=== PATIENT | female | born 1990 | race Two or more races ===

== ENCOUNTER 2019-03-06 04:05 | Inpatient (IN) | payer MEDICAID ==
[~2019-03-06] VITALS: Ht 160 cm; Wt 74.8 kg
[2019-03-06] MEDS ORDERED: IV RINGERS,LACTATED 1000ML 1,000 ML IV SCH (04:30)
[2019-03-06 04:34] LABS: BILIRUBIN,URINE NEGATIVE (NEG); CLARITY,URINE CLEAR; COLOR,URINE YELLOW; NITRITE,URINE NEGATIVE (NEG); PROTEIN,URINE NEGATIVE (NEG-TRACE); UROBILINOGEN,URINE 0.2 mg/dL (0.2 mg/dL)
[2019-03-06 04:45] LABS: BARBITURATES NEG (NEG); BENZODIAZEPINES NEG (NEG); CANNABINOIDS NEG (NEG); COCAINE NEG (NEG); METHADONE NEG (NEG); OPIATES NEG (NEG); PHENCYCLIDINE NEG (NEG)
[2019-03-06 04:46] LABS: AMPHETAMINE/METHAMPHETAMINE NEG (NEG)
[2019-03-06 05:14] LABS: AMNIO PT POSITIVE
[2019-03-06 05:20] LABS: BACTERIA,URINE 0 /HPF (0-FEW); RBC,URINE OCC /HPF (0-2); SQUAMOUS EPITHELIAL CELL,UR FEW /LPF
[2019-03-06] MEDS ORDERED: CITRIC ACID/SODIUM CITRATE 30 ML SOLUTION. PO PRN (05:30)
[2019-03-06] MEDS ORDERED: BUTORPHANOL 2 MG/ML VIAL. IV PRN ×2 (05:30)
[2019-03-06] MEDS ORDERED: OXYTOCIN 30 UNIT/500 ML PREMIX 500 ML IV PRN ×3 (05:30→13:15)
[2019-03-06] MEDS ORDERED: TERBUTALINE 1 MG/ML VIAL. SQ PRN (05:30)
[2019-03-06] MEDS ORDERED: 0.9 % SODIUM CHLORIDE 10 ML DISP.SYRIN. IV PRN ×2 (05:30→13:15)
[2019-03-06] MEDS ORDERED: MAG HYDROX/ALUMINUM HYD/SIMETH 30 ML ORAL.SUSP PO PRN ×2 (05:30→13:15)
[2019-03-06] MEDS ORDERED: ONDANSETRON PF 4 MG/2 ML VIAL. IV PRN (05:30)
[2019-03-06] MEDS ORDERED: fentaNYL PF VIAL 100 MCG/2 ML VIAL IV PRN (05:30)
[2019-03-06 05:34] VITALS: BP 120/76
[2019-03-06 06:08] LABS: HEMATOCRIT 34.3 % (36.0-47.0); HEMOGLOBIN 11.8 g/dL (12.0-15.5); RED BLOOD COUNT 3.86 x10^6/uL (3.50-5.40); RED CELL DISTRIBUTION WIDTH 14.2 % (11.5-14.5); WHITE BLOOD COUNT 12.4 x10^3/uL (4.0-11.0)
--- NOTE | 2019-03-06 07:50 | PDOC1 ---
OB - History Hx of Present Care: Good Care Ultrasounds: No ultrasounds Obstetrical Complications: Other (HSV on acyclovir no current out breaks or prodromal symptoms) Medical Complications: None Past Family/Social History * Past Medical, Surgical, Family and Obstetric Histories reviewed from chart. Blood Type: AB+ Rubella: Immune RPR/VDRL: Negative GBS Status: Negative HBsAG: Negative OB - Chief Complaint & HPI Date of Admission: Date of Admission: Mar 06, 2019 at 04:05 Chief Complaint/History : 1 Para: 0 EDC: March 26, 2019 Reason for admission: rupture of membranes, other (H/O HSV) Admission Nurse Assessment Rev: Yes OB - Admission Exam Physical Exam Vitals: VS - Last 72 Hours, by Label Date Time Temp Pulse Resp B/P (MAP) Pulse Ox O2 Delivery O2 Flow Rate FiO2 03/06/19 05:34 98.9 82 18 120/76 (91) Room Air 98.9 HEENT: Normal, Nasal Mucosa Normal, Oropharynx Normal, Moist Membranes, Fontanelles Normal Heart: Regular Rate Lungs: Clear, Equal Abdomen: Gravid Extremities: Normal Pulses, No tenderness or swelling Reflexes: Normal Cervical Dilatation: Fingertip Effacement: 50% Station: -2 Membranes: Ruptured Amniotic Fluid: Clear Heart Rate: Normal Accelerations: Accelerations Present Decelerations: No decelerations Short Term Variability: Present Contractions on Admission: < 5 Minutes Apart Intensity: Moderate Assessment/Plan Assessment/Plan TIUP HSV history on suppression SROM Continue suppressioAugmention ACS RL HINSON MD Mar 06, 2019 07:50
[2019-03-06] MEDS ORDERED: ACYCLOVIR 200 MG CAPSULE. PO ONE (08:15)
[2019-03-06] MEDS: IV RINGERS,LACTATED 1000ML 1,000 ML IV SCH ×3 (10:59→21:29)
[2019-03-06] MEDS: LIDOCAINE 1% PF 30 ML VIAL. INJ PRN (12:38)
--- NOTE | 2019-03-06 13:04 | PDOC ---
VAGINAL DELIVERY DATE DATE: 03/06/19 TIME: 13:02 : 1 EDC: March 26, 2019 VAGINAL DELIVERY: VTX PLACENTA: Spontaneous SEX: Male WEIGHT 6/12 Nuchal Cord: No Amniotic Fluid: Clear PAIN: Local EPISIOTOMY: Yes EXTENSION: No EBL 300cc COMPLICATIONS None CONDITION Stable Signs of Intrauterine Infectio: None Shoulder Dystocia: No DIAGNOSIS RL Briceno MD Mar 06, 2019 13:04
[2019-03-06] MEDS ORDERED: SIMETHICONE 80 MG TAB.CHEW PO PRN (13:15)
[2019-03-06] MEDS ORDERED: BENZOCAINE 20% TOPICAL AEROSOL SPRAY 57GM CAN. TP PRN (13:15)
[2019-03-06] MEDS ORDERED: MAGNESIUM HYDROXIDE 2,400 MG/30 ML ORAL.SUSP. PO PRN (13:15)
[2019-03-06] MEDS ORDERED: IBUPROFEN 400 MG TABLET. PO PRN (13:15)
[2019-03-06] MEDS ORDERED: diphenhydrAMINE HCL 25 MG CAPSULE PO PRN (13:15)
[2019-03-06] MEDS ORDERED: ZOLPIDEM 5 MG TABLET. PO PRN (13:15)
[2019-03-06] MEDS ORDERED: ACETAMINOPHEN 325 MG TABLET. PO PRN (13:15)
[2019-03-06] MEDS ORDERED: PHENYLEPH/MINERAL OIL/PETROLAT RECTAL OINTMENT 28GM TUBE. RC PRN (13:15)
[2019-03-06] MEDS ORDERED: HYDROCORTISONE 1% TOPICAL OINTMENT 30GM TUBE. TP PRN (13:15)
[2019-03-06] MEDS ORDERED: AMMONIA AROMATIC 15% INHALANT AMPUL. ONE (14:58)
[2019-03-06] MEDS: IBUPROFEN 400 MG TABLET. PO SCH ×2 (16:38→22:00)
[2019-03-06] MEDS: oxyCODONE/APAP 5/325 1 TAB TABLET PO PRN (16:58)
[2019-03-06] MEDS: FERROUS SULFATE 325 MG TABLET. PO SCH (17:00)
[2019-03-06 17:08] VITALS: BP 113/70
[2019-03-06 18:05] VITALS: BP 116/78
[2019-03-06 21:40] VITALS: BP 106/68
[2019-03-07 00:50] VITALS: BP 108/67
[2019-03-07 05:07] VITALS: BP 118/69
[2019-03-07] MEDS: IBUPROFEN 400 MG TABLET. PO SCH ×3 (05:17→23:45)
[2019-03-07] MEDS: FERROUS SULFATE 325 MG TABLET. PO SCH ×2 (08:44→18:13)
[2019-03-07] MEDS: oxyCODONE/APAP 5/325 1 TAB TABLET PO PRN ×2 (08:47→15:29)
[2019-03-07 08:50] VITALS: BP 109/72
--- NOTE | 2019-03-07 09:28 | PDOC ---
OB Progress Note Date of Service 03/07/19 Time of Evaluation 0917 Notes Pt. feeling well. No complaints. Pain controlled. Lab Laboratory Tests Test 03/06/19 04:08 03/06/19 04:30 03/06/19 05:40 03/07/19 06:30 Urine Collection Type Unknown Urine Color Yellow Urine Clarity Clear Urine pH 7.0 Urine Specific [place] 1.015 Urine Protein Negative mg/dL (NEG-TRACE) Urine Glucose (UA) Negative mg/dL (NEG) Urine Ketones (Stick) Negative mg/dL (NEG) Urine Blood Negative (NEG) Urine Nitrite Negative (NEG) Urine Bilirubin Negative (NEG) Urine Urobilinogen Dipstick 0.2 mg/dL (0.2 mg/dL) Urine Leukocyte Esterase Negative (NEG) Urine RBC Occ /HPF (0-2) Urine WBC 1-4 /HPF (0-4) Urine Squamous Epithelial Cells Few /LPF Urine Bacteria 0 /HPF (0-FEW) Urine Mucus Slight /LPF Urine Opiates Screen Neg (NEG) Urine Methadone Screen Neg (NEG) Urine Barbiturates Neg (NEG) Urine Phencyclidine Screen Neg (NEG) Urine Amphetamine/Methamphetamine Neg (NEG) Urine Benzodiazepines Screen Neg (NEG) Urine Cocaine Screen Neg (NEG) Urine Cannabinoids Screen Neg (NEG) Urine Ethyl Alcohol Neg (NEG) Amniotic Fluid Swab Test Positive White Blood Count 12.4 x10^3/uL (4.0-11.0) Red Blood Count 3.86 x10^6/uL (3.50-5.40) Hemoglobin 11.8 g/dL (12.0-15.5) Hematocrit 34.3 % (36.0-47.0) 27.1 % (36.0-47.0) Mean Corpuscular Volume 89 fL (79-100) Mean Corpuscular Hemoglobin 31 pg (25-35) Mean Corpuscular Hemoglobin Concent 34 g/dL (31-37) Red Cell Distribution Width 14.2 % (11.5-14.5) Platelet Count 182 x10^3/uL (140-400) Treponema pallidum Antibody Nonreactive (Nonreactive) Laboratory Tests Test 03/07/19 06:30 Hematocrit 27.1 % (36.0-47.0) Medications Current Medications Ringer's Solution 1,000 ml @ 125 mls/hr Q8H IV Last administered on 03/06/19at 05:30; Start 03/06/19 at 04:30; Stop 03/06/19 at 16:44; Status DC Sodium Chloride (Normal Saline Flush) 3 ml QSHIFT PRN IV AFTER MEDS AND BLOOD DRAWS; Start 03/06/19 at 05:30; Stop 03/06/19 at 16:44; Status DC Ringer's Solution 1,000 ml @ 125 mls/hr Q8H IV Last administered on 03/06/19at 10:59; Start 03/06/19 at 05:29; Stop 03/06/19 at 22:41; Status DC Butorphanol Tartrate (Stadol) 1 mg PRN Q1HR PRN IV mild to moderate labor pain ; Start 03/06/19 at 05:30; Stop 03/06/19 at 16:44; Status DC Butorphanol Tartrate (Stadol) 2 mg PRN Q1HR PRN IV Severe labor pain; Start at 05:30; Stop 03/06/19 at 16:44; Status DC Fentanyl Citrate (Fentanyl 2ml Vial) 100 mcg PRN Q10MIN PRN IV Labor pain Last administered on 03/06/19at 10:59; Start 03/06/19 at 05:30; Stop 03/06/19 at 16:44 ; Status DC Ondansetron HCl (Zofran) 4 mg PRN Q4HRS PRN IV NAUSEA/VOMITING 1ST CHOICE; Start 03/06/19 at 05:30 Al Hydroxide/Mg Hydroxide (Mylanta Plus Xs) 30 ml PRN Q4HRS PRN PO HEARTBURN / GAS; Start 03/06/19 at 05:30 Citric Acid/ Sodium Citrate (Bicitra) 30 ml 1X PRN PRN PO DYSPEPSIA; Start at 05:30; Stop 03/06/19 at 16:44; Status DC Terbutaline Sulfate (Brethine) 0.25 mg 1X PRN PRN SQ SEE COMMENTS; Start at 05:30; Stop 03/06/19 at 16:44; Status DC Lidocaine HCl (Xylocaine 1% Pf 30ml Vial) 30 ml 1X PRN PRN INJ SEE COMMENTS Last administered on 03/06/19at 12:38; Start 03/06/19 at 05:30; Stop 03/06/19 at 16:44; Status DC Oxytocin/Sodium Chloride 500 ml @ 0 mls/hr CONT PRN IV SEE I/O RECORD; Start at 05:30; Stop 03/06/19 at 16:44; Status DC Oxytocin/Sodium Chloride 500 ml @ 0 mls/hr CONT PRN PRN IV Post delivery bleeding; Start 03/06/19 at 05:30 Acyclovir (Zovirax) 400 mg 1X ONCE PO Last administered on 03/06/19at 09:09; Start 03/06/19 at 08:15; Stop 03/06/19 at 08:16; Status DC Sodium Chloride (Normal Saline Flush) 10 ml QSHIFT PRN IV AFTER MEDS AND BLOOD DRAWS; Start 03/06/19 at 13:15 Oxytocin/Sodium Chloride 500 ml @ 62.5 mls/hr CONT PRN IV SEE I/O RECORD; Start 03/06/19 at 13:15; Stop 03/06/19 at 16:44; Status DC Acetaminophen (Tylenol) 650 mg PRN Q6HRS PRN PO MILD PAIN / TEMP Last administered on 03/07/19at 00:10; Start 03/06/19 at 13:15 Ibuprofen (Motrin) 800 mg Q8HRS PO Last administered on 03/07/19at 05:17; Start 03/06/19 at 14:00 Ibuprofen (Motrin) 800 mg PRN Q8HRS PRN PO INFLAMMATION/PAIN PREVENTION; Start 03/06/19 at 13:15 Magnesium Hydroxide (Milk Of Magnesia) 2,400 mg PRN DAILY PRN PO CONSTIPATION; Start 03/06/19 at 13:15 Al Hydroxide/Mg Hydroxide (Mylanta Plus Xs) 30 ml PRN Q4HRS PRN PO HEARTBURN / GAS; Start 03/06/19 at 13:15 Simethicone (Gas-X) 80 mg PRN AFTMEALHC PRN PO GAS / BLOATING; Start 03/06/19 at 13:15 Diphenhydramine HCl (Benadryl) 25 mg PRN Q6HRS PRN PO ITCHING; Start 03/06/19 at 13:15 Benzocaine (Americaine) 1 spray PRN QID PRN TP TOPICAL PAIN; Start 03/06/19 at 13:15 Phenyleph/Shark Oil/Min Oil/Petrol (Preparation H) 1 adán PRN QID PRN RC RECTAL PAIN; Start 03/06/19 at 13:15 Hydrocortisone (Cortaid) 1 adán PRN QID PRN TP PERINEAL PAIN; Start 03/06/19 at 13:15 Ferrous Sulfate (Feosol) 325 mg BIDWMEALS PO Last administered on 03/07/19at 08: 44; Start 03/06/19 at 17:00 Zolpidem Tartrate (Ambien) 5 mg PRN QHS PRN PO INSOMNIA, MAY REPEAT X1; Start 03/06/19 at 13:15 Info (Do NOT chart on this placeholder) 1 ea 1X PRN PRN MC SEE COMMENTS; Start 03/06/19 at 13:15 Ammonia (Aromatic Spirit) (Amoply) 1 each STK-MED ONCE .ROUTE ; Start 03/06/19 at 14:58; Stop 03/06/19 at 14:59; Status DC Oxycodone/ Acetaminophen (Percocet 5/325) 1 tab PRN Q4HRS PRN PO PAIN Last administered on 03/07/19at 08:47; Start 03/06/19 at 16:45 Exam Abd: soft, non tender, fundus firm Assessment PPD#1 s/p Plan of Care: Continue current Tx, AUGUSTA Casas Jr, MD Mar 07, 2019 09:28
[2019-03-07 13:30] VITALS: BP 111/69
[2019-03-07 18:00] VITALS: BP 109/71
[2019-03-07 23:40] VITALS: BP 108/70
[2019-03-08 05:00] VITALS: BP 112/67
[2019-03-08] MEDS: IBUPROFEN 400 MG TABLET. PO SCH (06:00)
--- NOTE | 2019-03-08 08:11 | PDOC3 ---
OB DISCHARGE SUMMARY DATE OF ADMISSION: 03/06/19 DATE OF DISCHARGE: 03/08/19 REASON FOR ADMISSION: Onset of labor INTRAPARTUM PROCEDURES: Spontanous Vag Deliv DISCHARGE INFORMATION: Activity (ad tricia), Diet (regular), Instructions (pelvic rest x 6 wks) HOSPITAL COURSE Term gestation delivered vaginally without complications. AUGUSTA LILLY Jr, MD Mar 08, 2019 08:11
[2019-03-08] MEDS ORDERED: IBUP-1027 PO (08:13)
--- NOTE | 2019-03-08 08:16 | DISCH ---
DISCHARGE INSTRUCTIONS Condition on Discharge Condition on Discharge: Stable Activity After Discharge Activity Instructions for Disc: Activity as tolerated Lifting Instructions after Dis: No heavy lifting Driving Instructions after Dis: Do not drive today Diet after Discharge Diet after Discharge: Regular Contacting the DRBharath after DC Call your doctor for: Concerns you may have Follow-Up Follow up with: Luz Elena in 6 wks AUGUSTA LILLY Jr, MD Mar 08, 2019 08:16
[2019-03-08] MEDS: FERROUS SULFATE 325 MG TABLET. PO SCH (08:25)
[2019-03-08 09:12] VITALS: BP 111/68
[2019-03-08 12:45] VITALS: BP 114/70
== END 2019-03-08 13:30 | disposition home or self-care (01) | DRG 807 ==
LOC: 3 SO LND 04:05 → 3 NORTH 14:58 → OBSVTOIN 16:15
PROVIDERS: ADMIT Obstetrics & Gynecology; ATTEND Obstetrics & Gynecology
PROC: 10E0XZZ Delivery of Products of Conception, External Approach (ICD-10-PCS; principal; 2019-03-06)
PROC: 0W8NXZZ Division of Female Perineum, External Approach (ICD-10-PCS; 2019-03-06)
DX: O80 Encounter for full-term uncomplicated delivery (principal); Z37.0 Single live birth; Z3A.00 Weeks of gestation of pregnancy not specified
CPT/HCPCS: 36415; 80307; 81001; 84112; 85014; 85027; 86592; 86850; 86900; 86901; G0378; G0379; J3010; J7120